=== PATIENT | male | born 1975 | race Two or more races ===

== ENCOUNTER 2023-09-16 13:46 | Emergency (ER) | payer OTHER, SELFPAY ==
--- NOTE | 2023-09-16 13:51 | ED.GENADULT ---
HPI - General Adult General Chief complaint: Eye Problems Stated complaint: Swelling L Eye No Injury Time Seen by Provider: 09/16/23 14:38 Related Data Allergies Allergy/AdvReac Type Severity Reaction Status Date / Time No Known Allergies Allergy Verified 09/16/23 13:51 [facility] Social History Social History Advance Directives: No Physical Exam ED Vital Signs: Vital Signs - 24 hr 09/16/23 13:52 09/16/23 16:00 Temperature 98 F 97.3 F Pulse Rate 68 56 Respiratory Rate 19 16 Blood Pressure 117/75 127/78 Pulse Oximetry 98 97 Oxygen Delivery Method Room Air Room Air BMI result Body Mass Index 27.4 Course Course Course Narrative: This is an RME: Additional HPI, ROS, PE not included below will be deferred to primary provider. 48 year old male presents w/ left eye blurriness X 1 month. No trauma to eye. But thinks he may have gotten something in his eye when he was at a park. Not a contact lens wearer Plan- [facility] Medications Administered Discontinued Medications Generic Name Dose Route Start Last Admin Trade Name David PRN Reason Stop Dose Admin Fluorescein Sodium 1 strip 09/16/23 13:53 09/16/23 14:53 Fluorescein Sodium Strip EYE-BOTH 09/16/23 13:54 1 strip ONCE ONE Administration Tetracaine HCl 3 drop 09/16/23 13:53 09/16/23 14:53 Tetracaine Hcl/Pf 0.5% Oph Lita 4 Ml Drops EYE-BOTH 09/16/23 13:54 3 drop ONCE ONE Administration
[2023-09-16 13:52] VITALS: BP 117/75; PULSE 68; RESP 19; TEMP 36.6; O2SAT 98; BMI 27.4
[2023-09-16] MEDS: Tetracaine HCl/PF 0.5% Oph Sol 4 ML DROPS 3 DROP EYE-BOTH (14:53)
[2023-09-16] MEDS: Fluorescein Sodium STRIP 1 STRIP EYE-BOTH (14:53)
--- NOTE | 2023-09-16 15:23 | ED.EYEPROB ---
HPI - Eye Problem General Chief complaint: Eye Problems Stated complaint: Swelling L Eye No Injury Time Seen by Provider: 09/16/23 14:38 Source: patient and staff interpreter Mode of arrival: ambulatory Limitations: language barrier History of Present Illness HPI Narrative: Patient is a 48-year-old Danish-speaking male presenting to the emergency department with complaint of left eye blurred vision and discomfort for the past month. States at times the eye is painful, at times pruritic but states blurred vision has been constant. Denies any drainage or discharge. Denies any contact use but does wear glasses occasionally. States that he had an appointment with his community development coordinator but when he went to the appointment, they were no longer excepting his eye insurance and he was not able to be seen. Denies any other neurological symptoms. Denies headaches, nausea, vomiting, dizziness, lightheadedness. States symptoms began when he was at the park and someone was using a leaf blower which blew onto the left side of his face. Denies any blackout or black spots in field of vision. MD chief complaint: eye pain and vision change Onset (ago): month(s) Onset description: sudden Duration: constant Location: left eye Eye Symptoms: pain, itching and blurry vision Place: street/outdoors Mechanism: other Severity: moderate Associated symptoms: none Treatments Prior to Arrival: none Related Data Allergies Allergy/AdvReac Type Severity Reaction Status Date / Time No Known Allergies Allergy Verified 09/16/23 13:51 Review of Systems Review of Systems: As per HPI. Yes all other systems are reviewed and are negative Constitutional: Constitutional: Reports as per HPI [facility] Social History Social History Advance Directives: No Physical Exam Vital Signs: Vital Signs: Last Vital Signs Temp 97.3 F 09/16/23 16:00 Pulse 56 09/16/23 16:00 Resp 16 09/16/23 16:00 BP 127/78 09/16/23 16:00 Pulse Ox 97 09/16/23 16:00 O2 Del Method Room Air 09/16/23 16:00 BMI result Body Mass Index 27.4 Vital signs have been reviewed and appear to be correct. Blood pressure normal. Heart rate normal. Respiratory rate normal. Temperature normal. Oxygen saturation normal. Const: General: cooperative, healthy appearing and no acute distress Orientation/consciousness: oriented to person, oriented to place, oriented to time and patient oriented x3 Limitations: no limitations HEENT: Head: Yes normocephalic and Yes atraumatic Ears: external ears normal General nose exam: Normal external nose present Face and sinus: Yes face symmetric Mouth: oropharynx normal and moist mucous membranes Throat: Yes uvula midline Eyes: Other: IOP with tonopen 12 L eye, 11 R eye; no abrasion or lesion noted on Joe lamp exam with fluoresceine stain General: appearance normal, both eyes and all related structures Visual Gloria: normal visual gloria by confrontation Periorbital: periorbital findings normal Eyelids: Yes eyelids normal Conjunctivae: conjunctivae normal Sclerae: sclerae normal Corneas: corneas normal Pupils: Equal, round and reactive pupils present EOM: EOMs intact bilaterally Direct Ophthalmoscopy: normal light reflex, no photophobia, no papilledema and fundi normal bilaterally Neck: Neck: Yes normal visual inspection and Yes supple Resp: Effort & Inspection: normal respiratory effort and able to speak in complete sentences Auscultation: clear to auscultation bilaterally Cardio: Rate: regular rate Rhythm: regular rhythm Heart sounds: S1 normal heart sound present and S2 normal heart sound present Skin: General skin exam: elasticity normal and turgor normal Neuro: General: oriented to person, oriented to place, oriented to time, patient oriented x3, moves all extremities, no focal motor deficits and CN's II-XI intact bilaterally Cranial nerves: Yes Equal, round and reactive pupils present Cognition (Neuro): normal cognition Extrem: General: Yes full ROM, Yes no pedal edema and Yes no calf tenderness Psych: Mental Status: mental status grossly normal Affect: normal affect Thought process: Normal thought process present Medications Administered Discontinued Medications Generic Name Dose Route Start Last Admin Trade Name David PRN Reason Stop Dose Admin Fluorescein Sodium 1 strip 09/16/23 13:53 09/16/23 14:53 Fluorescein Sodium Strip EYE-BOTH 09/16/23 13:54 1 strip ONCE ONE Administration Tetracaine HCl 3 drop 09/16/23 13:53 09/16/23 14:53 Tetracaine Hcl/Pf 0.5% Oph Lita 4 Ml Drops EYE-BOTH 09/16/23 13:54 3 drop ONCE ONE Administration Medical Decision Making Medical Decision Making MDM Narrative: Patient is a 48-year-old Danish-speaking male presenting to the emergency department with complaint of left eye blurred vision and discomfort for the past month. On exam patient is awake, A+Ox3, VS WNL, afebrile, normal neurological exam without focal deficits, physical exam findings as above. Given reported symptoms and physical exam findings, initial differential includes corneal abrasion, keratitis, uveitis, retinal detachment. No hyphema noted on exam, no evidence of acute angle closure glaucoma. Visual acuity 20/70 L eye, 20/50 R eye. IOPs WNL. Given that symptoms have been ongoing for over one month, will refer to Dr. Lam for further evaluation and management. Return precautions discussed at bedside. Patient verbalized understanding of and agreement with plan. Differential Diagnosis Differential Diagnoses: The differential diagnosis associated with the presentation includes As per MDM. External Record Review External record reviewed: Inpatient record, Office record and Outpatient record Discharge Plan Discharge Clinical Impression: Vision blurred Patient Disposition: Home, Self-Care Instructions: Blurred Vision (ED) Additional Instructions: Se le remitir? al Dr. Lam, oftalm?logo, para brenna evaluaci?n y tratamiento adicionales de iveth s?ntomas. Llame a la oficina para programar brenna shar lo antes posible. Regrese al departamento de emergencias si experimenta un empeoramiento del dolor, n?useas y v?mitos, celeste de stan, enrojecimiento, hinchaz?n, fiebre, secreci?n o cualquier otro s?ntoma preocupante. Referrals: Daniel Lam [Physician] - Print Language: Danish
--- NOTE | 2023-09-16 15:58 | PC.NURSE ---
visual acuity performed with assistance of napper grinder, pt states that his vision is bilaterally blurry
[2023-09-16 16:00] VITALS: BP 127/78; PULSE 56; RESP 16; TEMP 36.3; O2SAT 97
== END 2023-09-16 16:24 | disposition home or self-care (01) ==
PROVIDERS: Emergency Provider Emergency Medicine
DX: H53.8 Other visual disturbances (principal)
CPT/HCPCS: 99283; 99284

== ENCOUNTER 2024-03-26 14:31 | Outpatient (REF) | payer OTHER, SELFPAY ==
[2024-03-26 16:45] LABS: Alanine Aminotransferase 24 U/L (0-40); Albumin Level 4.2 g/dL (3.5-5.0); Alkaline Phosphatase 91 U/L (39-117); Anion Gap 11 (12-20); Aspartate Amino Transferase 20 U/L (5-37); Bilirubin Total 0.5 mg/dL (0.0-1.0); Blood Urea Nitrogen 7 mg/dL (9-16); Calcium 9.1 mg/dL (8.4-10.2); Carbon Dioxide 28 mmol/L (22-29); Chloride 104 mmol/L (96-108); Cholesterol 173 mg/dL (<200); Estimated Average Glucose 131 mg/dL; Estimated Glomerular Filt Rate > 60; Glucose Random 155 mg/dL (60-115); HDL Cholesterol 30 mg/dL (>40); Hemoglobin A1c % 6.2 % (<6.0); LDL Cholesterol Calculated 117 mg/dL (<100); Potassium 3.8 mmol/L (3.3-5.1); Sodium 139 mmol/L (135-145); Total Protein 7.1 g/dL (6.5-8.0); Triglycerides 134 mg/dL (<150)
[2024-03-27 04:54] LABS: HIV AB/AG Nonreactive (Nonreactive); HIV Num 1 0.06 S/CO (0.00-0.99)
== END 2024-03-26 14:32 | disposition home or self-care (01) ==
LOC: HO.HHCL 14:31
PROVIDERS: Visit Provider Nurse Practitioner Family
DX: Z12.11 Encounter for screening for malignant neoplasm of colon (principal)
CPT/HCPCS: 36415; 80053; 80061; 83036; 87389

== ENCOUNTER 2025-06-03 09:52 | Outpatient (REF) | payer OTHER, SELFPAY ==
--- OUTSIDE RECORDS SUMMARY | 2025-06-03 10:04 | XMS_ITS | Clinical Summary ---
Author Organization [facility] Address [address] [address] Phone Care Team Providers Care Mail Truck Driver Name Role Phone Joel Barrett Primary Care Provider [phone] Allergies No known active allergies Social History Tobacco Use Types Packs/Day Years Used Date Smoking Tobacco: Never Assessed Sex and Gender Information Value Date Recorded Sex Assigned at Not on file Legal Sex Male 6:35 PM EST Gender Identity Not on file Sexual Orientation Not on file Last Filed Vital Signs Vital Sign Reading Time Taken Comments Blood Pressure 104/81 05/09/2015 3:52 PM EDT Pulse 67 05/09/2015 3:52 PM EDT Temperature 36.3 C (97.3 F) 05/09/2015 3:52 PM EDT Respiratory Rate 16 04/11/2015 9:11 AM EDT Oxygen Saturation - - Inhaled Oxygen Concentration - - Weight 74.8 kg (165 lb) 05/09/2015 3:52 PM EDT Height 172.7 cm (5' 8 ) 05/09/2015 3:52 PM EDT Body Mass Index 25.09 05/09/2015 3:52 PM EDT Plan of Treatment Not on file Medical Devices Not on file Insurance [place] B HEALTH MEDICARE PART A & B HEALTH MEDICARE PART A & B [place]ALTH MEDICARE PART [place] [address] [place] [address] MEDICARE PART A & B [facility] Care Teams Mail Truck Driver Relationship Specialty Start Date End Date Joel Barrett PA [address] [facility] [address] [place] [address] PCP - General 05/03/14 Additional Source Comments The information contained in this document represents components of the legal health record. It is not the complete legal health record.[facility]
--- OUTSIDE RECORDS SUMMARY | 2025-06-03 10:04 | XMS_ITS | Clinical Summary ---
Author Organization [facility] Address [address] [place] [address] Care Team Providers Care Direct Casting Operator Name Role Phone Unavailable Primary Care Provider Unavailabl e Social History Tobacco Use Types Packs/Day Years Used Date Smoking Tobacco: Never Assessed Sex and Gender Information Value Date Recorded Sex Assigned at Not on file Legal Sex Male 9:00 AM EST Gender Identity Not on file Sexual Orientation Not on file Plan of Treatment Health Maintenance Due Date Last Done Comments DTaP,Tdap,and Td Vaccines (1 - Tdap) 1995 Hepatitis B Vaccines (1 of 3 - 19+ 3-dose series) 1995 COVID-19 Vaccine ( - 2023-2 5 season) 2024 Depression Screening 11/03/2024 Influenza Vaccine (#1) 2025 HIB Vaccines Aged Out No longer eligi ble based on patient's age to complete this topic HPV Vaccines Aged Out No longer eligi ble based on patient's age to complete this topic Hepatitis A Vaccines Aged Out No long er eligible based on patient's age to complete this topic IPV Vaccines Aged Out No longer eligi ble based on patient's age to complete this topic MMR Vaccines Aged Out No longer eligi ble based on patient's age to complete this topic Meningococcal ACWY Vaccine Aged Out N o longer eligible based on patient's age to complete this topic Meningococcal B Vaccine Aged Out No l onger eligible based on patient's age to complete this topic Pneumococcal Vaccine: Pediat rics (0 to 5 Years) and At-Risk Patients (6 to 49 Years) Aged Out No longer eligible b ased on patient's age to complete this topic RSV Immunization Patients Un isaac 20 months Aged Out No longer eligible b ased on patient's age to complete this topic Varicella Vaccines Aged Out No longer eligible based on patient's age to complete this topic
--- OUTSIDE RECORDS SUMMARY | 2025-06-03 10:04 | XMS_ITS | Encounter Summary ---
Author Organization [employer] Address [address] [facility] [address] [place] [address] Care Team Providers Care Sanitation Truck Driver Name Role Phone Noemi Pozo NP Primary Care Provider [phone] Reason for Visit * Reason Onset Date Comments Med Refill 02/17/2024 Encounter Details Date Type Department Care Team (Late st Contact Info) Description 02/17/2024 Refill [facility] MED[facility] [address] [place], [place] [phone] Noemi Pozo NP [address] [place] [address] Encounter for screening for malignant neoplasm of colon Social History Tobacco Use Types Packs/Day Years Used Date Smoking Tobacco: Never Smokeless Tobacco: Never Alcohol Use Standard Drinks/Week Comments Not Currently 0 (1 standard drink = 0.6 oz pur e alcohol) Housing Stability Answer Date Recorded What is your housing situation today? I have h[place]enia beebe 01/30/[address] you li ve. Do you have problems with any of the following? None of the above 01/30/2024 Food Insecurity Answer Date Recorded Within the past 12 months, y ou worried that your food would run out before you got money to buy more: Sometimes True 2023 Within the past 12 months,th e food you bought just didn't last and you didn't have enough money to get more: Sometimes True 01/30/2024 Transportation Answer Date Recorded In the past 12 months, has l ack of transportation kept you from medical appts, meetings, work or from getting things needed for daily living? Yes, it has kept me from medical appointments or getting medications. 01/30/2024 Utilities Answer Date Recorded In the past 12 months, has t he electric, gas, oil or water company threatened to shut off services in your home? No 01/30/2024 Sex and Gender Information Value Date Recorded Sex Assigned at Male 06/19/2023 4:11 PM EDT Legal Sex Male 4:10 PM EDT Gender Identity Male 06/19/2023 4:11 PM EDT Sexual Orientation Choose not to disclose 2022 4:11 PM EDT documented as of this encounter Plan of Treatment Not on file documented as of this encounter Visit Diagnoses Diagnosis Encounter for screening for malignant neoplasm of colon documented in this encounter Care Teams Sanitation Truck Driver Relationship Specialty Start Date End Date Noemi Pozo NP [address] [place] [phone] PCP - General Family Medicine 02/06/24 documented as of this encounter
[2025-06-03 12:19] LABS: MANUAL DIFF FLAG NO
[2025-06-03 12:24] LABS: Hematocrit 44.0 % (42.0-52.0); Hemoglobin 15.2 g/dl (14.0-18.0); Imm Gran Abs Auto 0.01 X10*3/uL (0.00-0.03); Imm Gran Pct Auto 0.2 % (0.0-0.4); Lymphocytes Absolute Auto 2.2 X10*3/uL (1.2-4.9); Mean Corpuscular HGB Conc 34.5 g/dl (31.0-36.0); Mean Corpuscular Hemoglobin 30.3 pg (27.0-33.0); Mean Corpuscular Volume 87.8 fL (80.0-98.0); NRBC Abs Auto 0.000 X10*3/uL (0.0-0.012); NRBC Pct Auto 0.0 /100WBC (0.0-0.2); Platelet Count 245 X10*3/uL (160-400); Red Blood Count 5.01 X10*6/uL (4.60-5.80); White Blood Count 6.0 X10*3/uL (4.8-10.8)
[2025-06-03 13:14] LABS: Alanine Aminotransferase 23 U/L (0-40); Albumin Level 4.5 g/dL (3.5-5.0); Alkaline Phosphatase 77 U/L (39-117); Anion Gap 10 (12-20); Aspartate Amino Transferase 26 U/L (5-37); Blood Urea Nitrogen 11 mg/dL (9-16); Calcium 8.9 mg/dL (8.4-10.2); Carbon Dioxide 29 mmol/L (22-29); Chloride 105 mmol/L (96-108); Cholesterol 173 mg/dL (<200); Estimated Glomerular Filt Rate > 60; HDL Cholesterol 35 mg/dL (>40); Potassium 3.6 mmol/L (3.3-5.1); Sodium 140 mmol/L (135-145); Total Protein 6.9 g/dL (6.5-8.0); Triglycerides 126 mg/dL (<150)
[2025-06-03 13:49] LABS: CT PCR Urine NOT DETECTED (Not Detect.); NG PCR Urine NOT DETECTED (Not Detect.)
[2025-06-03 13:50] LABS: HIV Num 1 0.05 S/CO (0.00-0.99); ~HepC Num1 0.08 S/CO (0.00-0.79); ~Hepatitis C Antibody Nonreactive (Nonreactive)
[2025-06-03 13:50] LABS: CT PCR Urine NOT DETECTED (Not Detect.); NG PCR Urine NOT DETECTED (Not Detect.)
== END 2025-06-03 09:53 | disposition home or self-care (01) ==
LOC: HO.HHCL 09:52
PROVIDERS: PCP Nurse Practitioner Family; Visit Provider Nurse Practitioner Family
DX: R73.03 Prediabetes (principal); R51.9 Headache, unspecified; Z11.59 Encounter for screening for other viral diseases; Z11.3 Encounter for screening for infections with a predominantly sexual mode of transmission; Z11.4 Encounter for screening for human immunodeficiency virus [HIV]; Z11.8 Encounter for screening for other infectious and parasitic diseases
CPT/HCPCS: 36415; 80053; 80061; 85025; 86592; 86803; 87389; 87491; 87591

== ENCOUNTER 2025-08-05 19:05 | Outpatient (REF) | payer OTHER, SELFPAY ==
--- OUTSIDE RECORDS SUMMARY | 2025-08-05 10:15 | XMS_ITS | Encounter Summary ---
Author Organization [employer] Address [address] [place] [address] Care Team Providers Care Can Reforming Machine Operator Name Role Phone Noemi Pozo NP Primary Care Provider [phone] Reason for Visit * Reason Comments Follow-up Encounter Details Date Type Department Care Team ([facility] st Contact Info) Description 08/05/2025 10:15 AM EDT Office Visit [facility] [address] [place], [place] [phone] Noemi Pozo NP [address] [place] [address] Elevated blood pressure reading (Primary Dx); Type 2 diabetes mellitus without complication, without long-term current use of insulin (HCC); Dysuria; Encounter for immunization; Candidiasis of genitalia; At risk for nausea and vomiting; Aching headache; Chronic low back pain, unspecified back pain laterality, unspecified whether sciatica present Social History Tobacco Use Types Packs/Day Years Used Date Smoking Tobacco: Never Smokeless Tobacco: Never Tobacco Cessation:Counseling Given: Not Answered Alcohol Use Standard Drinks/Week Comments Never 0 (1 standard drink = 0.6 oz pur e alcohol) Depression Answer Date Recorded Patient Health Questionnaire-9 Score 7 06/03/2025 Patient Health Questionnaire-9 Score 7 06/03/2025 Last PHQ-9: Questionnaire Data Not on file 0 06/03/2025 Housing Stability Answer Date Recorded What is your housing situation today? I have h[place] beebe 06/03/[address] you li ve. Do you have problems with any of the following? None of the above 06/03/2025 Food Insecurity Answer Date Recorded Within the past 12 months, y ou worried that your food would run out before you got money to buy more: Often true 06/03/2025 Within the past 12 months,th e food you bought just didn't last and you didn't have enough money to get more: Never True 11/2024 Transportation Answer Date Recorded In the past 12 months, has l ack of transportation kept you from medical appts, meetings, work or from getting things needed for daily living? Yes, it has kept me from medical appointments or getting medications. 06/03/2025 Utilities Answer Date Recorded In the past 12 months, has t he [employer], [employer], oil or water [employer] threatened to shut off services in your home? Yes 06/03/2025 Depression Answer Date Recorded Patient Health Questionnaire-2 Score 2 06/03/2025 Internet Access Answer Date Recorded Internet Access Q1 No 06/03/2025 Internet Access Q2 Not on file 06/03/2025 Sex and Gender Information Value Date Recorded Sex Assigned at Male 06/19/2023 4:11 PM EDT Legal Sex Male 4:10 PM EDT Gender Identity Male 06/19/2023 4:11 PM EDT Sexual Orientation Choose not to disclose 2022 4:11 PM EDT documented as of this encounter Last Filed Vital Signs Vital Sign Reading Time Taken Comments Blood Pressure 148/100 08/05/2025 10:27 AM EDT Pulse 90 08/05/2025 10:27 AM EDT Temperature 36.7 C (98.1 F) 08/05/2025 10:27 AM EDT Respiratory Rate 20 08/05/2025 10:27 AM EDT Oxygen Saturation - - Inhaled Oxygen Concentration - - Weight 83.1 kg (183 lb 3.2 oz) 08/05/2025 10:27 AM EDT Height 170.2 cm (5' 7 ) 08/05/2025 10:27 AM EDT Body Mass Index 28.69 08/05/2025 10:27 AM EDT documented in this encounter Progress Notes * Noemi Pozo NP - 08/05/2025 10:15 AM EDT Bandar Osullivanzquez is a 49 y.o. male presenting for follow up for the following conditions: - Bandar Ma, 49-year-old male - Headaches occurring 2 to 3 days per week, increased frequency recently - Reports mild back pain, worsened with bending - Previously took Tylenol with codeine for spine and back pain, found it effective for pain relief - Currently taking amitriptyline nightly - Denies concerns about substance use or misuse - Reports presence of a small white spot on the penis - Urine described as having an unpleasant odor prior to the encounter Problem List[1] Review of Systems Respiratory: Negative for apnea. Genitourinary: Positive for penile discharge. Musculoskeletal: Positive for back pain. Neurological: Positive for headaches. BP (!) 148/100 (BP Location: Left arm, Patient Position: Sitting, BP Cuff Size: Adult) Pulse 90 Temp 98.1 ??F (36.7 ??C) (Oral) Resp 20 Ht 5' 7 (1.702 m) Wt 183 lb 3.2 oz (83.1 kg) BMI 28.69 kg/m?? Physical Exam Vitals reviewed. Constitutional: Appearance: Normal appearance. HENT: Head: Normocephalic. Cardiovascular: Rate and Rhythm: Normal rate. Heart sounds: Normal heart sounds. Pulmonary: Breath sounds: Normal breath sounds. Abdominal: Palpations: Abdomen is soft. Musculoskeletal: Cervical back: Neck supple. Neurological: Mental Status: He is alert. Psychiatric: Mood and Affect: Mood normal. - CARDIOVASCULAR: Elevated blood pressure. Office Visit on 08/05/2025 Component Date Value Glucose Blood, POC 08/05/2025 217 (A) QC Media Lot # 08/05/2025 [id number] Lot# Expiration Date 08/05/2025 [id number] Color, UA 08/05/2025 Light Yellow Clarity, UA 08/05/2025 Clear Glucose, UA 08/05/2025 Negative Bilirubin, UA 08/05/2025 Negative Ketones, UA 08/05/2025 Negative Spec Grav, UA 08/05/2025 1.010 Blood, UA 08/05/2025 Negative pH, UA 08/05/2025 7.0 Protein, UA 08/05/2025 Negative Urobilinogen, UA 08/05/2025 0.2 Leukocytes, UA 08/05/2025 Negative Nitrite, UA 08/05/2025 Negative Appearance, UA 08/05/2025 yellow clear Orders Only on 06/03/[address] PCR, Urine 06/03/2025 NOT DETECTED NG PCR, Urine 06/03/2025 NOT DETECTED Office Visit on 06/03/2025 Component Date Value Glucose Blood, POC 06/03/2025 139 QC Media Lot # 06/03/2025 [id number] Lot# Expiration Date 06/03/2025 103,025 Hemoglobin A1C 06/03/2025 6.1 (A) QC Media Lot # 06/03/2025 [id number] Lot# Expiration Date 06/03/2025 22,627 Sodium 06/03/2025 140 Potassium 06/03/2025 3.6 Chloride 06/03/2025 105 Carbon Dioxide 06/03/2025 29 Anion Gap 06/03/2025 10 (L) Urea Nitrogen (BUN) 06/03/2025 11 Creatinine, Serum 06/03/2025 0.85 Estimated Glomerular Rene* 06/03/2025 >60 Glucose 06/03/2025 93 Calcium 06/03/2025 8.9 Bilirubin, Total 06/03/2025 0.5 Aspartate Amino Transfer* 06/03/2025 26 Alanine Aminotransferase 06/03/2025 23 Total Protein 06/03/2025 6.9 Albumin Level 06/03/2025 4.5 Alkaline Phosphatase 06/03/2025 77 Triglycerides 06/03/2025 126 Cholesterol 06/03/2025 173 LDL Cholesterol Calculat* 06/03/2025 113 (H) HDL Cholesterol 06/03/2025 35 (L) White Blood Count 06/03/2025 6.0 Red Blood Count 06/03/2025 5.01 Hemoglobin 06/03/2025 15.2 Hematocrit 06/03/2025 44.0 Mean Corpuscular Volume 06/03/2025 87.8 Mean Corpuscular Hemoglo* 06/03/2025 30.3 Mean Corpuscular HGB Conc 06/03/2025 34.5 Red Cell Distribution Wi* 06/03/2025 12.7 Platelet Count 06/03/2025 245 Mean Platelet Volume 06/03/2025 10.9 Neutrophils Percent Auto 06/03/2025 50.4 Imm Gran Pct Auto 06/03/2025 0.2 Lymphocytes Percent Auto 06/03/2025 36.0 Monocytes Percent Auto 06/03/2025 9.5 Eosinophils Percent Auto 06/03/2025 2.7 Basophils Percent Auto 06/03/2025 1.2 NRBC Pct Auto 06/03/2025 0.0 Neutrophils Absolute Auto 06/03/2025 3.0 Imm Gran Abs Auto 06/03/2025 0.01 Lymphocytes Absolute Au* 06/03/2025 2.2 Monocytes Absolute Auto 06/03/2025 0.6 Eosinophils Absolute Auto 06/03/2025 0.2 Basophils Absolute Auto 06/03/2025 0.1 NRBC Abs Auto 06/03/[address] PCR, Urine 06/03/2025 NOT DETECTED NG PCR, Urine 06/03/2025 NOT DETECTED HIV AB/AG 06/03/2025 Nonreactive Hepatitis C Antibody 06/03/2025 Nonreactive RPR (Monitor) w/Refl Tit* 06/03/2025 NON-REACTIVE Rapid Plasma Reagin Ab T* 06/03/2025 TNP IMAGES: - Urinalysis: normal Assessment & Plan Type 2 diabetes mellitus without complication, without long-term current use of insulin ([facility]) Orders: POCT Glucose Dysuria Orders: POCT Urinalysis Culture, Urine, Routine Encounter for immunization Orders: FLU VACCINE TRIVALENT [id number] (Fluarix) 19 yrs + Elevated blood pressure reading Candidiasis of genitalia At risk for nausea and vomiting Aching headache Orders: ondansetron (Zofran) 4 MG tablet; Take 2 tablets (8 mg) by mouth every 8 (eight) hours if needed for nausea or vomiting for up to 7 days. Chronic low back pain, unspecified back pain laterality, unspecified whether sciatica present Orders: acetaminophen-codeine (Tylenol w/ Codeine #3) 300-30 MG tablet; Take 1 tablet by mouth every 12 (twelve) hours if needed for severe pain for up to 4 days. Assessment & Plan Elevated blood pressure reading: - Elevated blood pressure noted during encounter; typically well-controlled, but higher than usual today. - Ordered blood pressure cuff for home monitoring. Recommended to check blood pressure at home whendevice is available. Candidiasis of genitalia: - Genital candidiasis suspected based on presence of white exudate on penis. - Prescribed topical antifungal medication. Advised to notify clinic if symptoms do not improve. At risk for nausea and vomiting: - Prescribed ondansetron (Zofran) for nausea and vomiting as requested. Aching headache: - Headache frequency increased to 2-3 days per week. Headaches managed with amitriptyline; dose increased from 10 mg to 25 mg nightly to reduce headache frequency. - Prescribed amitriptyline 25 mg nightly. Advised to monitor headache frequency and note episodes in phone. Follow-up scheduled in 6 weeks to assess response to medication. - Risks and side effects: Discussed possible increased sleepiness, especially during first few nights and mornings after dose increase. Chronic low back pain, unspecified back pain laterality, unspecified whether sciatica present: - Chronic low back pain managed previously with Tylenol with codeine, which provided relief. Not recommended for daily use. - Prescribed small quantity of Tylenol with codeine for occasional use during episodes of severe pain. Advised to use sparingly and consider alternative pain management strategies, including injections and other medications. Encouraged to stay active. Prescription - Amitriptyline 25 mg nightly (increase from 10 mg; may cause increased somnolence first few nightsand possible morning sedation) - Topical antifungal cream for penile yeast infection; monitor for improvement and report if no resolution - Tylenol with codeine tablets, limited quantity; use sparingly for back pain (controlled substance, not intended for daily long-term use) Appointments - Follow-up appointment in 6 weeks at front facer scheduling Based on our discussion, I have outlined the following instructions for you: - When you receive your blood pressure monitor, check your blood pressure at home as recommended. - Use the cream for your genital area as prescribed. If you do not see improvement in your symptoms, contact the clinic. - Take ondansetron (Zofran) as prescribed if you feel nauseous or need to vomit. - Take amitriptyline 25 mg every night as prescribed. Keep track of how often you get headaches by noting them in your phone. - You may feel more sleepy, especially during the first few nights and mornings after starting the higher dose of amitriptyline. - Use Tylenol with codeine only when your back pain is very severe, and use it sparingly. Try otherways to manage pain if possible, and keep active. Next appointment(s): - Follow-up appointment in 6 weeks at front facer scheduling Thank you again for your visit, and we look forward to supporting you in your journey to better health. This note was drafted using Ambient (AI) technology. The patient/patient's guardian has been informed and has consented to the use of this technology: Yes Visit Conducted in: Qatari Translation by: Provided by [email or web address] Sr. Pricing Analyst Phone Service ID # [id number] [1] Patient Active Problem List Diagnosis Asthma Chronic low back pain Depression Glucose intolerance HSV-2 infection Hypertension Migraine Prediabetes PTSD (post-traumatic stress disorder) Vision changes Gastroesophageal reflux disease without esophagitis Chronic bilateral thoracic back pain Pre-diabetes Seasonal allergic rhinitis due to pollen HSV-1 infection Cataract Cervicogenic headache Encounter for immunization Subacute pansinusitis Hyperglycemia Colon cancer screening Acute bilateral low back pain with sciatica Routine screening for STI (sexually transmitted infection) Chronic daily headache Dietary counseling Exercise counseling Dysuria Type 2 diabetes mellitus without complication, without long-term current use of insulin (HCC) Elevated blood pressure reading Candidiasis of genitalia At risk for nausea and vomiting Aching headache documented in this encounter Miscellaneous Notes * Assessment & Plan Note - Noemi Pozo NP - 08/05/2025 10:15 AM EDTAssociated Problem(s): Type 2 diabetes mellitus without complication, without long-term current useof insulin (HCC) Orders: POCT Glucose * Assessment & Plan Note - Noemi Pozo NP - 08/05/2025 10:15 AM EDTAssociated Problem(s): Dysuria Orders: POCT Urinalysis Culture, Urine, Routine * Assessment & Plan Note - Noemi Pozo NP - 08/05/2025 10:15 AM EDTAssociated Problem(s): Encounter for immunization Orders: FLU VACCINE TRIVALENT [id number] (Fluarix) 19 yrs + * Assessment & Plan Note - Noemi Pozo NP - 08/05/2025 10:15 AM EDTAssociated Problem(s): Elevated blood pressure reading * Assessment & Plan Note - Noemi Pozo NP - 08/05/2025 10:15 AM EDTAssociated Problem(s): Candidiasis of genitalia * Assessment & Plan Note - Noemi Pozo NP - 08/05/2025 10:15 AM EDTAssociated Problem(s): At risk for nausea and vomiting * Assessment & Plan Note - Noemi Pozo NP - 08/05/2025 10:15 AM EDTAssociated Problem(s): Aching headache Orders: ondansetron (Zofran) 4 MG tablet; Take 2 tablets (8 mg) by mouth every 8 (eight) hours if needed for nausea or vomiting for up to 7 days. * Assessment & Plan Note - Noemi Pozo NP - 08/05/2025 10:15 AM EDTAssociated Problem(s): Chronic low back pain Orders: acetaminophen-codeine (Tylenol w/ Codeine #3) 300-30 MG tablet; Take 1 tablet by mouth every 12 (twelve) hours if needed for severe pain for up to 4 days. documented in this encounter Plan of Treatment Upcoming Encounters Date Type Department Care Team (Late st Contact Info) Description 08/16/2025 1:00 PM EDT Office Visit [facility] [address] [place], [place] [phone] Evangelist, Sona, OD [address] [place] [address] Scheduled Orders Name Type Priority Associated Diagnoses Orde r Schedule Culture, Urine, Routine Microbiology Routine Dysuria Ordered: 08/05/2025 documented as of this encounter Procedures Procedure Name Priority Date/Time Associated Diagnosis Comments POCT URINALYSIS DIPSTICK Routine 08/05/2025 10:31 AM EDT Dysuria POCT GLUCOSE Routine 08/05/2025 10:29 AM EDT Type 2 diabetes mellitus without complication, without long-term current use of insulin (HCC) documented in this encounter Results * POCT Urinalysis (08/05/2025 10:31 AM EDT) Color, UA Light Yellow Clarity, UA Clear Glucose, UA Negative Bilirubin, UA Negative Ketones, UA Negative Spec Grav, UA 1.010 Blood, UA Negative Negative, None Detected pH, UA 7.0 Protein, UA Negative Urobilinogen, UA 0.2 Leukocytes, UA Negative Negative, Rare, Trace Nitrite, UA Negative Negative, None Detected Appearance, UA yellow clear Urine 08/05/2025 10:3 1 AM EDT Noemi Pozo NP POINT OF CARE TEST ENTER/EDIT OR DERABLES Final Result * (ABNORMAL) POCT Glucose (08/05/2025 10:29 AM EDT) Glucose Blood, POC 217(A) 60 - 200 mg/dL QC Media Lot # [id number] Lot# Expiration Date 3026 Blood Capillary blood specimen / Unknown 08/05/2025 10:29 AM EDT Noemi Pozo CASTING COORDINATOR POINT OF CARE TEST ENTER/EDIT OR DERABLES Final Result documented in this encounter Visit Diagnoses Diagnosis Elevated blood pressure reading- Primary Elevated blood pressure reading without diagnosis of hypertension Type 2 diabetes mellitus without complication, without long-term current use of insulin (HCC) Dysuria Encounter for immunization Candidiasis of genitalia At risk for nausea and vomiting Aching headache Headache Chronic low back pain, unspecified back pain laterality, unspecified whether sciatica present documented in this encounter Additional Health Concerns Assessment Noted Time PHQ-9 Depression Total Score: 7 06/03/20 25 9:56 AM EDT documented as of this encounter Care Teams Can Reforming Machine Operator Relationship Specialty Start Date End Date Noemi Pozo NP [address] [place] [address] PCP - General Family Medicine 02/06/24 documented as of this encounter
--- OUTSIDE RECORDS SUMMARY | 2025-08-05 19:08 | XMS_ITS | Encounter Summary ---
Author Organization [employer] Address [address] [facility] [address] [place] [address] Care Team Providers Care Cargo Supervisor Name Role Phone Noemi Pozo CAMILA Primary Care Provider [phone] Encounter Details Date Type Department Care Team (Latest Contact Info) Description 08/05/2025 Travel Social History Tobacco Use Types Packs/Day Years Used Date Smoking Tobacco: Never Smokeless Tobacco: Never Alcohol Use Standard Drinks/Week Comments Never 0 [...] as of this encounter Plan of Treatment Upcoming Encounters Date Type Department Care Team (Late st Contact Info) Description 08/16/2025 1:00 PM EDT Office Visit [facility] [address] [place] [address] Sona Blanca, OD [address] [place] [address] documented as of this encounter Visit Diagnoses Not on filedocumented in this encounter Additional Health Concerns Assessment Noted Time PHQ-9 Depression Total Score: 7 06/03/20 25 9:56 AM EDT documented as of this encounter Care Teams Cargo Supervisor Relationship Specialty Start Date End Date Noemi Pozo NP [address] [place] [address] PCP - General Family Medicine 02/06/24 documented as of this encounter
--- OUTSIDE RECORDS SUMMARY | 2025-08-05 19:08 | XMS_ITS | Encounter Summary ---
Author Organization [employer] Address [address] [facility] [address], [place] [address] Care Team Providers Care Timber Buyer Name Role Phone Noemi Pozo NP Primary Care Provider [phone] Reason for Visit * Reason Comments Med Refill Encounter Details Date Type Department Care Team ([facility] st Contact Info) Description 08/03/2025 Refill [facility] [address] [place], [place] [phone] Noemi Pozo NP [address] [place], [place] [phone] HSV-1 infection; Seasonal allergic rhinitis due to pollen Social History Tobacco Use Types Packs/Day Years [...] Description 08/16/2025 1:00 PM EDT Office Visit [facility] [address] [place] [address] Sona Blanca, OD [address] [place] [address] documented as of this encounter Visit Diagnoses Diagnosis HSV-1 infection Herpes simplex without mention of complication Seasonal allergic rhinitis due to pollen documented in this encounter Additional Health Concerns Assessment Noted Time PHQ-9 Depression Total Score: 7 06/03/20 25 9:56 AM EDT documented as of this encounter Care Teams Timber Buyer Relationship Specialty Start Date End Date Noemi Pozo NP [address] [place] [address] PCP - General Family Medicine 02/06/24 documented as of this encounter
--- OUTSIDE RECORDS SUMMARY | 2025-08-05 19:08 | XMS_ITS | Encounter Summary ---
Author Organization [employer] Address [address] [facility] [address] [place] [address] Care Team Providers Care Contract Administrative Assistant Name Role Phone Noemi Pozo CAMILA Primary Care Provider [phone] Reason for Visit * Reason Onset Date Comments Med Refill 08/04/2025 Encounter Details Date Type Department Care Team (Late st Contact Info) Description 08/04/2025 Refill [facility] [address] [place] [phone] Lamar Dutton MD [address] [place] [address] Social History Tobacco Use Types Packs/Day Years [...] Description 08/16/2025 1:00 PM EDT Office Visit [facility] [address] [place] [address] EvangelistSona daniel, OD [address] [place] [address] documented as of this encounter Visit Diagnoses Not on filedocumented in this encounter Additional Health Concerns Assessment Noted Time PHQ-9 Depression Total Score: 7 06/03/20 25 9:56 AM EDT documented as of this encounter Care Teams Contract Administrative Assistant Relationship Specialty Start Date End Date Noemi Pozo NP [address] [place] [address] PCP - General Family Medicine 02/06/24 documented as of this encounter
--- OUTSIDE RECORDS SUMMARY | 2025-08-05 19:08 | XMS_ITS | Encounter Summary ---
Author Organization [employer] Address [address] [address] Care Team Providers Care Senior Contract Specialist Name Role Phone Noemi Pozo NP Primary Care Provider [phone] Reason for Visit * Reason Onset Date Comments Med Refill 08/04/2025 Encounter Details Date Type Department Care Team (Late st Contact Info) Description 08/04/2025 Refill [facility] [address] [place], [place] [phone] Noemi Pozo NP [address] [place] [address] Type 2 diabetes mellitus without complication, without long-term current use of insulin (HCC); Moderate persistent asthma without complication; Chronic bilateral thoracic back pain; Seasonal allergic rhinitis due to pollen; HSV-1 infection Social History Tobacco Use Types Packs/Day Years [...] Description 08/16/2025 1:00 PM EDT Office Visit [facility] [address] [place] [address] Sona Blanca, OD [address] [place] [address] documented as of this encounter Visit Diagnoses Diagnosis Type 2 diabetes mellitus without complication, without long-term current use of insulin (HCC) Moderate persistent asthma without complication Chronic bilateral thoracic back pain Seasonal allergic rhinitis due to pollen HSV-1 infection Herpes simplex without mention of complication documented in this encounter Additional Health Concerns Assessment Noted Time PHQ-9 Depression Total Score: 7 06/03/20 25 9:56 AM EDT documented as of this encounter Care Teams Senior Contract Specialist Relationship Specialty Start Date End Date Noemi Pozo NP [address] [place] [address] PCP - General Family Medicine 02/06/24 documented as of this encounter
--- OUTSIDE RECORDS SUMMARY | 2025-08-05 19:08 | XMS_ITS | Encounter Summary ---
Author Organization [employer] Address [address] [facility] [address] [place] [address] Care Team Providers Care Pie Bottomer Name Role Phone Noemi Pozo NP Primary Care Provider [phone] Reason for Visit * Reason Onset Date Comments Med Refill 02/17/2024 Encounter Details Date Type Department Care Team (Late st Contact Info) Description 02/17/2024 Refill [facility] [address] [place], [place] [phone] Noemi Pozo NP [address] [place] [address] Encounter for screening for malignant neoplasm of colon Social History Tobacco Use Types Packs/Day Years Used Date Smoking Tobacco: Never Smokeless Tobacco: Never Alcohol Use Standard Drinks/Week Comments Not Currently 0 (1 standard drink = 0.6 oz pur e alcohol) Housing Stability Answer Date Recorded What is your housing situation today? I have halegihyesenia beebe 01/30/[address] you [...] Description 08/16/2025 1:00 PM EDT Office Visit [facility] [address] [place] [address] Sona Blanca, OD [address] [place] [address] documented as of this encounter Visit Diagnoses Diagnosis Encounter for screening for malignant neoplasm of colon documented in this encounter Care Teams Pie Bottomer Relationship Specialty Start Date End Date Noemi Pozo NP [address] [place] [address] PCP - General Family Medicine 02/06/24 documented as of this encounter
--- OUTSIDE RECORDS SUMMARY | 2025-08-05 19:08 | XMS_ITS | Encounter Summary ---
Author Organization [employer] Address [address] [facility] [address], [place] [address] Care Team Providers Care Accounting Analyst Name Role Phone Noemi Pozo NP Primary Care Provider [phone] Reason for Visit * Reason Onset Date Comments CHARTPREP 08/04/2025 Encounter Details Date Type Department Care Team ([facility] st Contact Info) Description 08/04/2025 Telephone [facility] [address] [place], [place] [phone] Noemi Pozo NP [address] [place] [address] CHARTPREP Social History Tobacco Use Types Packs/Day Years [...] PM EDT documented as of this encounter Miscellaneous Notes * Telephone Encounter - Murray Ashby [place] - 08/04/2025 10:37 AM EDT Chart Prep Labs: done Images: not applicable Referrals: Office: [facility] [address] [place] [address] Tel. [phone] Fax. [phone]. 1st appointment 07/26/25, following appointments for therapies 08/10/25 08/12/25, 08/17/25, 08/22/25, 08/25/25, 08/29/25, 09/01/25 Office: [facility] [address] [place] [address] Tel. [phone] Fax. [phone]. Pending appt. Referral and notes faxed to office on 06/03/2025 GI appointment is pending Office: [facility] Dr. Gonzalez (NPI# [id number]) [address] [facility] [address] Tel. [phone] Fax. [phone]. Pt pending appointment. Vaccines due: Covid, Flu, Hep B, and HPV Screenings: colonoscopy and foot exam,Diabetes Overdue care gaps: SBIRT and Oral health screening documented in this encounter Plan of Treatment Upcoming Encounters Date Type Department Care Team (Late st Contact Info) Description 08/16/2025 1:00 PM EDT Office Visit [facility] [address] [place] [address] Sona Blanca, OD [address] [place] [address] documented as of this encounter Visit Diagnoses Not on filedocumented in this encounter Additional Health Concerns Assessment Noted Time PHQ-9 Depression Total Score: 7 06/03/20 25 9:56 AM EDT documented as of this encounter Care Teams Accounting Analyst Relationship Specialty Start Date End Date Noemi Pozo NP [address] [place] [address] PCP - General Family Medicine 02/06/24 documented as of this encounter
--- OUTSIDE RECORDS SUMMARY | 2025-08-05 19:08 | XMS_ITS | Encounter Summary ---
Author Organization [employer] Address [address] [facility] [address] [place] [address] Care Team Providers Care Human Resources Director Name Role Phone Noemi Pozo NP Primary Care Provider [phone] Reason for Visit * Reason Comments Med Refill Encounter Details Date Type Department Care Team ([facility] st Contact Info) Description 11/13/2024 Refill [facility] [address] [place], [place] [phone] Noemi Pozo NP [address] [place] [address] Social History Tobacco Use Types Packs/Day Years Used Date Smoking Tobacco: Never Smokeless Tobacco: Never Alcohol Use Standard Drinks/Week Comments Never 0 (1 standard drink = 0.6 oz pur e alcohol) Depression Answer Date Recorded Patient Health Questionnaire-9 Score 0 05/17/2024 Patient Health Questionnaire-9 Score 0 05/17/2024 Last PHQ-9: Questionnaire Data Not on file 0 05/17/2024 Housing Stability Answer Date Recorded What is your housing situation today? I have [place] beebe 01/30/[address] you [...] off services in your home? No 01/30/2024 Depression Answer Date Recorded Patient Health Questionnaire-2 Score 0 05/17/2024 Sex and Gender Information Value Date Recorded [...] 08/16/2025 1:00 PM EDT Office Visit [facility] [address] [place], [place] [phone] Evangelist, Sona, OD [address] [place] [address] documented as of this encounter Visit Diagnoses Not on filedocumented in this encounter Additional Health Concerns Assessment Noted Time PHQ-9 Depression Total Score: 0 05/17/20 24 3:47 PM EDT documented as of this encounter Care Teams Human Resources Director Relationship Specialty Start Date End Date Noemi Pozo NP [address] [place] [address] PCP - General Family Medicine 02/06/24 documented as of this encounter
--- OUTSIDE RECORDS SUMMARY | 2025-08-05 19:08 | XMS_ITS | Encounter Summary ---
Author Organization [employer] Address [address] [facility] [address] [place] [address] Care Team Providers Care Surveyor Rod Helper Name Role Phone Noemi Pozo CAMILA Primary Care Provider [phone] Encounter Details Date Type Department Care Team (Latest Contact Info) Description 08/04/2025 Travel Social History Tobacco Use Types Packs/Day [...] Description 08/16/2025 1:00 PM EDT Office Visit [facility] [address] [place] [address] Sona Blanca, OD [address] [place] [address] documented as of this encounter Visit Diagnoses Not on filedocumented in this encounter Additional Health Concerns Assessment Noted Time PHQ-9 Depression Total Score: 7 06/03/20 25 9:56 AM EDT documented as of this encounter Care Teams Surveyor Rod Helper Relationship Specialty Start Date End Date Noemi Pozo NP [address] [place] [address] PCP - General Family Medicine 02/06/24 documented as of this encounter
--- OUTSIDE RECORDS SUMMARY | 2025-08-05 19:08 | XMS_ITS | Clinical Summary ---
Author Organization [employer] Address [address] [place] [address] [address] [place] [address] Care Team Providers Care Certification And Selection Specialist Name Role Phone Noemi Pozo CAMILA Primary Care Provider [phone] Allergies No known active allergies Medications Ventolin HFA 108 (90 Base) MCG/ACT inhaler INHALE 2 PUFFS BY MOUTH EVERY 6 HOURS NEEDED FOR WHEEZING / SHORTNESS OF BREATH 023 Active ARIPiprazole (Abilify) 10 MG tablet Take 10 mg by mouth in the morning. 023 Active atenolol (Tenormin) 50 MG tablet Take 50 mg by mouth in the morning. 024 Active capsaicin (Zostrix) 0.025 % cream Apply topically to the affected areas twice daily 023 Active Diclofenac Sodium 1 % gel Apply 1-2 grams to the affected area four times daily as needed 023 Active omeprazole (PriLOSEC) [address] capsule Take 40 mg by mouth before breakfast. Active ondansetron ODT (Zofran-ODT) 4 MG disintegrating tablet Take 1 tablet by mouth every 6 (six) hours if needed for nausea or vomiting. 023 Active sertraline (Zoloft) 100 MG tablet Take 100 mg by mouth in the morning. Active sucralfate (Carafate) 1 g tablet Take 1 tablet by mouth three times daily before meals and before bedtime on an empty stomach as needed 023 Active zolpidem (Ambien) 10 MG tablet Take 10 mg by mouth if needed at bedtime for sleep. Active fluticasone-salme terol (Advair HFA) 230-21 MCG/ACT inhaler Inhale 2 puffs in the morning and at bedtime. Rinse mouth with water after use to reduce aftertaste and incidence of candidiasis. Do not swallow. 12 g 11 025 2025 Active fluticasone (Flonase) 50 MCG/ACT nasal sprayIndications: Seasonal allergic rhinitis due to pollen INSTILL 1 SPRAY IN EACH NOSTRIL TWICE DAILY FOR 7 DAYS 16 g Active valACYclovir (Valtrex) 500 MG tabletIndications :HSV-1 infection TAKE 1 TABLET BY MOUTH EVERY DAY 30 tablet 1 Active cetirizine (ZyrTEC) 10 MG tabletIndications :Seasonal allergic rhinitis due to pollen Take 1 tablet (10 mg) by mouth Once per day. 30 tablet 2 Active tiZANidine (Zanaflex) 4 MG tabletIndications :Type 2 diabetes mellitus without complication, without long-term current use of insulin (HCC) Take 1 tablet (4 mg) by mouth if needed in the morning and at bedtime for muscle spasms. 60 tablet 1 Active montelukast (Singulair) 10 MG tabletIndications :Moderate persistent asthma without complication Take 1 tablet (10 mg) by mouth at bedtime. 30 tablet 3 Active cyclobenzaprine (Flexeril) 10 MG tabletIndications :Chronic bilateral thoracic back pain TAKE 1 TABLET BY MOUTH DAILY AT BEDTIME NEEDED FOR MUSCLE SPASMS 20 tablet 1 Active acetaminophen (Tylenol) 325 MG tablet TAKE 2 TABLETS BY MOUTH EVERY 6 HOURS NEEDED FOR MODERATE PAIN OR FOR MIGRAINE 90 tablet 1 Active polyvinyl alcohol (Liquifilm Tears) 1.4 % ophthalmic solution Administer 1 drop into both eyes if needed for dry eyes. PLACE 1 DROP IN EACH EYE TWICE DAILY NEEDED 15 mL 3 Active amitriptyline (Elavil) 25 MG tablet Take 1 tablet (25 mg) by mouth at bedtime. 90 tablet 025 2025 Active miconazole (Micatin) 2 % cream Apply topically 2 times daily for 14 days. 30 g 025 2024 Active ondansetron (Zofran) 4 MG tabletIndications :Aching headache Take 2 tablets (8 mg) by mouth every 8 (eight) hours if needed for nausea or vomiting for up to 7 days. 20 tablet 025 2024 Active acetaminophen-cod eine (Tylenol w/ Codeine #3) 300-30 MG tabletIndications :Chronic low back pain, unspecified back pain laterality, unspecified whether sciatica present Take 1 tablet by mouth every 12 (twelve) hours if needed for severe pain for up to 4 days. 8 tablet 2024 Active Blood Pressure kit 1 kit if needed each day (bp). 1 kit Active tiZANidine (Zanaflex) 4 MG tabletIndications :Type 2 diabetes mellitus without complication, without long-term current use of insulin (HCC) TAKE 1 TABLET BY MOUTH EVERY 8 HOURS NEEDED FOR MUSCLE SPASMS FOR UP TO 10 DAYS 30 tablet 024 2024 Discontinued(R eorder (will not trigger notification to Pharmacy)) polyvinyl alcohol (Liquifilm Tears) 1.4 % ophthalmic solution Administer 1 drop into both eyes if needed for dry eyes. PLACE 1 DROP IN EACH EYE TWICE DAILY NEEDED 15 mL 3 2024 Discontinued(R eorder (will not trigger notification to Pharmacy)) cetirizine (ZyrTEC) 10 MG tabletIndications :Seasonal allergic rhinitis due to pollen Take 1 tablet (10 mg) by mouth Once per day. 30 tablet 2 2024 Discontinued(R eorder (will not trigger notification to Pharmacy)) acetaminophen (Tylenol) 325 MG tablet TAKE 2 TABLETS BY MOUTH EVERY 6 HOURS NEEDED FOR MODERATE PAIN OR FOR MIGRAINE 90 tablet 1 2024 Discontinued(R eorder (will not trigger notification to Pharmacy)) amitriptyline (Elavil) 10 MG tablet Take 1 tablet (10 mg) by mouth at bedtime. 30 tablet 1 025 2024 Discontinued valACYclovir (Valtrex) 500 MG tabletIndications :HSV-1 infection TAKE 1 TABLET BY MOUTH EVERY DAY 30 tablet 1 025 2024 Discontinued montelukast (Singulair) 10 MG tabletIndications :Moderate persistent asthma without complication TAKE 1 TABLET BY MOUTH DAILY AT BEDTIME 30 tablet 3 025 2024 Discontinued(R eorder (will not trigger notification to Pharmacy)) cyclobenzaprine (Flexeril) 10 MG tabletIndications :Chronic bilateral thoracic back pain TAKE 1 TABLET BY MOUTH DAILY AT BEDTIME NEEDED FOR MUSCLE SPASMS 20 tablet 1 025 2024 Discontinued(R eorder (will not trigger notification to Pharmacy)) fluticasone (Flonase) 50 MCG/ACT nasal sprayIndications: Seasonal allergic rhinitis due to pollen INSTILL 1 SPRAY IN EACH NOSTRIL TWICE DAILY FOR 7 DAYS. 16 g 025 2024 Discontinued amitriptyline (Elavil) 10 MG tablet TAKE 1 TABLET BY MOUTH AT BEDTIME 30 tablet 1 025 2024 Discontinued Active Problems Problem Noted Date Diagnosed Date Dysuria 08/05/2025 Assessment & Plan (08/05/2025 6:50 PM EDT): Orders: POCT Urinalysis Culture, Urine, Routine Type 2 diabetes mellitus wit hout complication, without long-term current use of insulin 08/05/2025 Assessment & Plan (08/05/2025 6:50 PM EDT): Orders: POCT Glucose Elevated blood pressure reading 08/05/2025 Assessment & Plan (08/05/2025 6:50 PM EDT): Candidiasis of genitalia 08/05/2025 Assessment & Plan (08/05/2025 6:50 PM EDT): At risk for nausea and vomiting 08/05/2025 Assessment & Plan (08/05/2025 6:50 PM EDT): Aching headache 08/05/2025 Assessment & Plan (08/05/2025 6:50 PM EDT): Orders: ondansetron (Zofran) 4 MG tablet; Take 2 tablets (8 mg) by mouth every 8 (eight) hours if needed for nausea or vomiting for up to 7 days. Hyperglycemia 06/03/2025 Assessment & Plan (06/03/2025 10:47 AM EDT): Stable, lifestyle reviewed Lab Results Component Value Date HGBA1C 6.1 (A) 06/03/2025 Colon cancer screening 06/03/2025 Assessment & Plan (06/03/2025 10:47 AM EDT): Referral to gi for colonoscopy Acute bilateral low back pain with sciatica 11/2024 Assessment & Plan (06/03/2025 10:48 AM EDT): Referral to physiatry due to chronic symptoms Routine screening for STI (sexually transmitted infection) 06/03/2025 Chronic daily headache 06/03/2025 Assessment & Plan (06/03/2025 10:48 AM EDT): Trial low dose amitryptiline, Follow up in 2 months sooner prn Dietary counseling 06/03/2025 Assessment & Plan (06/03/2025 10:50 AM EDT): Dietary Recommendations: Fruits, vegetables, whole grains, protein foods, and fat-free or low-fat dairy products are healthy choices. Eat different types of protein foods in your diet. This can include seafood, lean meats, poultry, beans, peas, lentils, nuts, seeds, soy products, and eggs. Limit foods and beverages higher in added sugars, saturated fat, and sodium. Exercise Recommendations: At least 150 minutes of moderate-intensity physical activity per week, or an equivalent combination of moderate- and vigorous-intensity activity Exercise counseling 06/03/2025 Subacute pansinusitis 04/25/2025 Assessment & Plan (04/25/2025 4:21 PM EDT): Rx Augmentin x 7 days Rest (sleep at least 8 hours a night). Hydrate with plenty of water (avoid caffeine and alcohol). Use saline nose drops to loosen mucus + Flonase x 7 days + Zyrtec take Acetaminophen (Tylenol )/Ibuprofen as needed to reduce fever, headache, body aches or discomfort Gargle with salt water and use throat sprays/lozenges for throat pain. Use heated, humidified air. If you do not have a humidifier, take hot showers. Cover coughs and sneezes using the crook of your elbow. If you have a fever, stay home and away from others (self isolation) until fever-free for 72 hours (temperature should be less than 100 F without medication). Encounter for immunization 09/28/2024 Assessment & Plan (08/05/2025 6:50 PM EDT): Orders: FLU VACCINE TRIVALENT [id number] (Fluarix) 19 yrs + Cervicogenic headache 07/09/2024 Assessment & Plan (09/28/2024 8:35 PM EST): Suspect msk strain Referral to physical therapy Reviewed exercises that help with neck strain Prn tizanidine not to be combined with cyclobenzaprine Assessment & Plan (07/11/2024 6:51 PM EDT): Refill flexeril, report worsening symptoms or failure to resolve Pre-diabetes 05/25/2024 Assessment & Plan (05/25/2024 11:08 AM EDT): Stable, continue current heart healthy lifestyle goals, monitor Seasonal allergic rhinitis due to pollen 024 Assessment & Plan (06/03/2025 10:46 AM EDT): Endorses dry nose, may apply vaseline or taper to every other day Allergies play a role in seasonal asthma Referral to allergy Assessment & Plan (05/25/2024 11:08 AM EDT): Renew topical nasal spray 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 Assessment & Plan (06/03/2025 10:47 AM EDT): Stable, on antivirals Assessment & Plan (05/25/2024 11:08 AM EDT): Prefers daily suppressive therapy, trial 500 mg daily (reduced from 1 gm) Cataract 05/25/2024 Assessment & Plan (07/11/2024 6:52 PM EDT): Plan for bilateral repair, pt verbalizes understanding of risks related to procedure and wishes to proceed Assessment & Plan (05/25/2024 11:09 AM EDT): Has upcoming cataract surgery scheduled Asthma 02/06/2024 Overview (02/06/2024): Negative Methacholine Challenge Aug 2019 Assessment & Plan (06/03/2025 10:49 AM EDT): Pt reports daily wheeze, requiring inhaler 3-4 times per day despite compliance with preventative inhalers, and singulair, referral to allergy as symptoms flare with pollen count Assessment & Plan (07/11/2024 6:51 PM EDT): Stable mild intermittent Assessment & Plan (02/07/2024 8:50 PM EDT): Stable, continue symbicort Chronic low back pain 02/06/2024 Assessment & Plan (08/05/2025 6:50 PM EDT): Orders: acetaminophen-codeine (Tylenol w/ Codeine #3) 300-30 MG tablet; Take 1 tablet by mouth every 12 (twelve) hours if needed for severe pain for up to 4 days. 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 Hypertension 02/06/2024 Assessment & Plan (06/03/2025 10:46 AM EDT): At goal today, continue current regimen of tenaolol despite asthma Assessment & Plan (07/11/2024 6:51 PM EDT): Well controlled Assessment & Plan (02/07/2024 8:50 PM EDT): At goal of <140/<90 Continue atenolol 50 mg (for migraines as well) Migraine 02/06/2024 Prediabetes 02/06/2024 PTSD (post-traumatic stress disorder) 02/06/2024 Vision changes 02/06/2024 Assessment & Plan (02/07/2024 8:53 PM EDT): Endorses painless cloudy vision, referral to eye care Gastroesophageal reflux disease without esophagi tis 02/06/2024 Assessment & Plan (02/07/2024 8:51 PM EDT): Recent viral illness, resolved, continue omeprazole, Chronic bilateral thoracic back pain 02/06/2024 Assessment & Plan (02/07/2024 8:53 PM EDT): Prn cyclobenzaprine renewed, Resolved Problems Problem Noted Date Diagnosed Date Resolved Date Type 2 diabetes mellitus wit hout complication, without long-term current use of insulin 09/28/2024 06/02/2025 Assessment & Plan (09/28/2024 8:36 PM EST): Lab Results Component Value Date HGBA1C 6.2 (A) 05/17/2024 Continue Encounters Date Type Department Care Team Description 08/05/2025 10:15 AM EDT Office Visit [facility] [address] [place] [phone] Noemi Pozo NP Elevated blood pressure reading (Primary Dx); Type 2 diabetes mellitus without complication, without long-term current use of insulin (HCC); Dysuria; Encounter for immunization; Candidiasis of genitalia; At risk for nausea and vomiting; Aching headache; Chronic low back pain, unspecified back pain laterality, unspecified whether sciatica present 08/05/2025 Travel 08/04/[address] [facility] [address] [place] [address] Noemi Pozo NP 08/04/2025 Refill [facility] [address] [place] [phone] Noemi Pozo NP Type 2 diabetes mellitus without complication, without long-term current use of insulin (HCC); Moderate persistent asthma without complication; Chronic bilateral thoracic back pain; Seasonal allergic rhinitis due to pollen; HSV-1 infection 08/04/2025 Refill [facility] [address] [place] [phone] Lamar Dutton MD 08/04/2025 Travel 08/04/2025 Telephone [facility] [address] [place] [phone] Noemi Pozo NP CHARTPREP 08/03/2025 Refill [facility] [address] [place] [phone] Lamar Dutton MD Seasonal allergic rhinitis due to pollen 08/03/2025 Refill [facility] [address] [place] [phone] Noemi Pozo NP HSV-1 infection; Seasonal allergic rhinitis due to pollen 07/27/2025 Refill [facility] [address] [place] [phone] Noemi Pozo NP Seasonal allergic rhinitis due to pollen 06/27/2025 Refill [facility] [address] [place] [phone] Lamar Dutton MD Seasonal allergic rhinitis due to pollen 06/16/2025 Refill [facility] [address] [place] [phone] Noemi Pozo NP Chronic bilateral thoracic back pain 06/08/2025 Refill [facility] [address] [place] [phone] Noemi Pozo NP HSV-1 infection; Moderate persistent asthma without complication 06/06/2025 Results Follow-Up [facility] [address] [place] [phone] Noemi Pozo NP POCT Glucose, POCT HGB A1C, Comprehensive Metabolic Panel, Additional followed-up results: 5 06/03/2025 9:00 AM EDT Office Visit [address] [phone] Noemi Pozo NP Prediabetes (Primary Dx); Dietary counseling; Exercise counseling; Hypertension, unspecified type; Seasonal allergic rhinitis due to pollen; HSV-1 infection; Major depressive disorder in partial remission, unspecified whether recurrent (CMS/HCC); PTSD (post-traumatic stress disorder); Mild intermittent asthma without complication; Colon cancer screening; Acute bilateral low back pain with sciatica, sciatica laterality unspecified; Routine screening for STI (sexually transmitted infection); Chronic daily headache 06/03/2025 Orders Only [facility] [address] [place] [phone] Noemi Pozo NP 06/03/2025 Travel 06/02/[address] [phone] Noemi Pozo NP Chart Prep 05/27/2025 Patient Outreach [facility] [address] [place], [place] [phone] Noemi Pozo NP Pre-visit Planning ([facility] unable to reach [facility] ) 05/24/2025 Refill [facility] [address] [place] [phone] Lamar Dutton MD from Last 3 Months Immunizations Immunization Administration Dates Next Due HPV 9-Valent 02/23/2022 HPV, Quadrivalent 02/23/2022 Hep A / Hep B 12/12/2021 Hep A, Adult 02/06/2024 Influenza Injectable Quadriv alant Preservative Free IIV4 MDCK 08/07/2020,07/15/2019 Influenza Whole 08/07/2020 Influenza injectable quadriv alent IIV4 with preservative 08/14/2018 Influenza injectable quadriv alent preservative free 08/07/2023,08/05/2017 Influenza, IIV3, injectable 08/07/2023,1 ,08/21/2021,2018,08/14/2018,08/05/2017,07/29/2016,1 11/04/2014,09/20/2014,08/13/2013 Influenza, Unspecified 09/07/2012,2010,07/27/2010,2007,09/28/2007,10/03/2006 Influenza, live, intranasal 08/21/2009 Influenza, seasonal, injecta ble, preservative free 08/05/2025,09/28/2024 Moderna Covid-19 Vaccine 12+ 02/01/2021,01/31/20 21 Pneumococcal Conjugate PCV 20 02/23/2022 Td (adult), unspecified 10/03/2006 Tdap 12/09/2021,05/18/2021,08/13/2013 Varicella 12/12/2021 Family History Medical History Relation Name Comments Stroke Father Prostate cancer Father's Brother Diabetes Mother Relation Name Status Comments Father Father's Brother Mother Social History Tobacco Use Types Packs/Day Years [...] not to disclose 2022 4:11 PM EDT Last Filed Vital Signs Vital Sign Reading Time Taken Comments Blood Pressure 148/100 08/05/2025 10:27 AM EDT Pulse 90 08/05/2025 10:27 AM EDT Temperature 36.7 C (98.1 F) 08/05/2025 10:27 AM EDT Respiratory Rate 20 08/05/2025 10:27 AM EDT Oxygen Saturation 96% 06/03/2025 9:15 AM EDT Inhaled Oxygen Concentration - - Weight 83.1 kg (183 lb 3.2 oz) 08/05/2025 10:27 AM EDT Height 170.2 cm (5' 7 ) 08/05/2025 10:27 AM EDT Body Mass Index 28.69 08/05/2025 10:27 AM EDT Plan of Treatment Upcoming Encounters Date Type Department Care Team (Late st Contact Info) Description 08/16/2025 1:00 PM EDT Office Visit [facility] [address] [place] [address] Evangelist, Sona, OD [address] [place] [address] Health Maintenance Due Date Last Done Comments CT Colonography 1976 Colonoscopy 1976 Colorectal Cancer Screening 1976 FIT DNA/Cologuard 1976 FIT 1976 FOBT 1976 Sigmoidoscopy 1976 Diabetes: Foot Exam 1986 Alcohol/Substance Use Screening 1988 Family Planning (PISQ) 1991 Diabetes: Urine Protein Screening 1995 Hepatitis B Vaccines (2 of 3 - Hep B Twinrix 3-dose series) 01/09/2022 12/12/2021 HPV Vaccines (2 - Male 3-dose series) 03/23/2022 02/23/2022, 02/23/2022 COVID-19 Vaccine ( season) 2025 08/07/2023, 01/18/2023, 10/04/2021, Additional history exists Diabetes: Hemoglobin A1C 12/04/2025 025, 05/17/2024, 03/26/2024 Eye Exam 05/14/2026 05/14/2024, 05/03, 05/14/2024, Additional history exists Depression Screening 06/03/2026 06/03/2025, 06/03/20 25 Lipid Panel 06/03/2026 06/03/2025, 03/26/2024 SDOH Screening 06/03/2026 06/03/2025 Disability Screening 08/04/2026 08/04/2025 Tobacco Screening 08/05/2026 08/05/2025 Zoster Vaccines (1 of 2) 2026 DTaP/Tdap/Td Vaccines (4 - Td or Tdap) 12/09/2031 12/09/2021, 05/18/2021, 08/13/2013, Additional history exists RSV Patients and Patients Aged 60 years or older (1 - 1-dose 75+ series) 2051 Pneumococcal Vaccine: Pediatrics (0 to 5 Years) and At-Risk Patients (6 to 49) Years Completed 02/23/2022 Hepatitis A Vaccines Aged Out 02/06/2024, 12/12/19 22 No longer eligible based on patient's age to complete this topic HIV Screening Completed 06/03/2025, 03/26/2024 Hepatitis C Screening Completed 06/03/2025 Influenza Vaccine Completed 08/05/2025, , 08/07/2023, Additional history exists HIB Vaccines Aged Out No longer eligi ble based on patient's age to complete this topic IPV Vaccines Aged Out No longer eligi ble based on patient's age to complete this topic Meningococcal B Vaccine Aged Out No l onger eligible based on patient's age to complete this topic Meningococcal Vaccine Aged Out No denise latia eligible based on patient's age to complete this topic RSV under 20 months Aged Out No longe r eligible based on patient's age to complete this topic Rotavirus Vaccines Aged Out No longer eligible based on patient's age to complete this topic Procedures Procedure Name Priority Date/Time Associated Diagnosis Comments POCT URINALYSIS DIPSTICK Routine 08/05/2025 10:31 AM EDT Dysuria POCT GLUCOSE Routine 08/05/2025 10:29 AM EDT Type 2 diabetes mellitus without complication, without long-term current use of insulin (HCC) HEPATITIS C AB W/REFL TO HCV RNA, QN, PCR Routine 06/03/2025 10:28 AM EDT Chronic daily headache HIV 1/2 ANTIGEN/ANTIBODY, FOURTH GENERATION W/RFL Routine 06/03/2025 10:28 AM EDT Chronic daily headache RPR (MONITOR) W/REFL TITER Routine 06/03/2025 10:00 AM EDT Chronic daily headache CHLAMYDIA/TRICHOMONAS/ NEISSERIA GONORRHOEAE, PCR, URINE Routine 06/03/2025 10:00 AM EDT Chronic daily headache CBC WITH AUTO DIFFERENTIAL Routine 06/03/2025 10:00 AM EDT Prediabetes LIPID PANEL, STANDARD Routine 06/03/2025 10:00 AM EDT Prediabetes COMPREHENSIVE METABOLIC PANEL Routine 06/03/2025 10:00 AM EDT Prediabetes CHLAMYDIA/TRICHOMONAS/ NEISSERIA GONORRHOEAE, PCR, URINE Routine 06/03/2025 9:43 AM EDT POCT GLYCATED HEMOGLOBIN, TOTAL Routine 06/03/2025 9:25 AM EDT Prediabetes POCT GLUCOSE Routine 06/03/2025 9:25 AM EDT Prediabetes from Last 3 Months Results * POCT Urinalysis (08/05/2025 10:31 AM [...] (ABNORMAL) POCT Glucose (08/05/2025 10:29 AM EDT) Only the most recent of2 resultswithin the time period is included. Pathologist [facility] Glucose Blood, POC 217(A) 60 - 200 mg/dL QC Media Lot # [id number] Lot# Expiration Date 3120 Blood Capillary blood specimen / Unknown 08/05/2025 10:29 AM EDT Noemi Pozo [employer]JECT MANAGER POINT OF CARE TEST ENTER/EDIT OR DERABLES Final Result * Hepatitis C Antibody with Reflex to HCV, RNA, Quantitative, Real-Time PCR (06/03/2025 10:28 AM EDT) Pathologist [facility] Hepatitis C Antibody Nonreactive Nonreactive [facility] Comment:Antibodies to HCV no t detected; does not exclude early acuteHCV infection. Blood Venous blood specimen / Unknown 06/03/2025 10:28 AM EDT 06/03/2025 12:14 PM EDT Noemi Pozo NP LAB BLOOD ORDERABLES Final Resul t Performing Organization Address City/[facility]/ZIP Co de Phone Number [facility] [address] [place] [phone] * HIV-1/2 Antigen and Antibodies, Fourth Generation, with Reflexes (06/03/2025 10:28 AM EDT) Pathologist [facility] HIV AB/AG Nonreactive Nonreactive [facility] Comment:HIV-1 p24 Ag and/or HIV-1/HIV-2 Ab not detected.A test result that is nonreactive does not exclude thepossibility of exposure to or infection with HIV-1 and/orHIV-2. Nonreactive results in this assay for individualswith prior exposure to HIV-1 and/or HIV-2 may be due toantigen and antibody levels that are below the limit ofdetection of this assay.The [employer] HIV Ag/Ab Combo assay result andsupplemental assay results should be interpreted inconjunction with the patient's clinical presentation,history and other laboratory results. If the results areinconsistent with clinical evidence, additional testing issuggested to confirm the result. Blood Venous blood specimen / Unknown 06/03/2025 10:28 AM EDT 06/03/2025 12:14 PM EDT us Noemi Pozo NP LAB BLOOD ORDERABLES Final Resul t Performing Organization Address City/[facility]/ZIP Co de Phone Number [facility] [address] [place] [phone] * Chlamydia/N. Gonorrhoeae, PCR, Urine (06/03/2025 10:00 AM EDT) Only the most recent of2 resultswithin the time period is included. Pathologist [facility] CT PCR, Urine NOT DETECTED Not Detect. [facility] Comment:A not detected test result does not exclude the possibilityof infection because test results can be affected byimproper specimen collection, concurrent antibiotic therapy,or the number of organisms in the specimen which may bebelow the sensitivity of the test. As with many diagnostictests, results from the Xpert CT/NG assay should beinterpreted in conjunction with other laboratory andclinical data available to the clinician.The Xpert CT/NG assay should not be used for the evaluationof suspected sexual abuse or for other medico-legalindications. Additional testing is recommended in anycircumstance when false positive or false negative resultscould lead to adverse medical, social or psychologicalconsequences. NG PCR, Urine NOT DETECTED Not Detect. [facility] Comment:A not detected test result does not exclude the possibilityof infection because test results can be affected byimproper specimen collection, concurrent antibiotic therapy,or the number of organisms in the specimen which may bebelow the sensitivity of the test. As with many diagnostictests, results from the Xpert CT/NG assay should beinterpreted in conjunction with other laboratory andclinical data available to the clinician.The Xpert CT/NG assay should not be used for the evaluationof suspected sexual abuse or for other medico-legalindications. Additional testing is recommended in anycircumstance when false positive or false negative resultscould lead to adverse medical, social or psychologicalconsequences. Urine (Urine, Random) 06/03/2025 10:00 AM EDT 06/03/2025 12:02 PM EDT us Noemi Pozo NP LAB URINE ORDERABLES Final Resul t [facility] [address] [place] [address] [phone] * CBC auto differential (06/03/2025 10:00 AM EDT) White Blood Count 6.0 4.8 - 10.8 X10*3/uL [facility] Red Blood Count 5.01 4.60 - 5.80 X10*6/uL [facility] Hemoglobin 15.2 14.0 - 18.0 g/dl [facility] Hematocrit 44.0 42.0 - 52.0 % [facility] Mean Corpuscular Volume 87.8 80.0 - 98.0 fL [facility] Mean Corpuscular Hemoglobin 30.3 27.0 - 33.0 pg [facility] Mean Corpuscular HGB Conc 34.5 31.0 - 36.0 g/dl [facility] Red Cell Distribution Width 12.7 11.0 - 16.0 % [facility] Platelet Count 245 160 - 400 X10*3/uL [facility] Mean Platelet Volume 10.9 9.4 - 12.4 fL [facility] Neutrophils Percent Auto 50.4 45 - 73 % [facility] Imm Gran Pct Auto 0.2 0.0 - 0.4 % [facility] Lymphocytes Percent Auto 36.0 20 - 40 % [facility] Monocytes Percent Auto 9.5 2 - 11 % [facility] Eosinophils Percent Auto 2.7 0 - 4 % [facility] Basophils Percent Auto 1.2 0 - 2 % [facility] NRBC Pct Auto 0.0 0.0 - 0.2 /100WBC [facility] Neutrophils Absolute Auto 3.0 2.0 - 8.3 x10*3/uL [facility] Imm Gran Abs Auto 0.01 0.00 - 0.03 X10*3/uL [facility] Lymphocytes Absolute Auto 2.2 1.2 - 4.9 X10*3/uL [facility] Monocytes Absolute Auto 0.6 0.1 - 1.2 X10*3/uL [facility] Eosinophils Absolute Auto 0.2 0.0 - 0.4 X10*3/uL [facility] Basophils Absolute Auto 0.1 0.0 - 0.2 X10*3/uL [facility] NRBC Abs Auto 0.000 0.0 - 0.012 X10*3/uL [facility] Blood Venous blood specimen / Unknown 06/03/2025 10:00 AM EDT 06/03/2025 12:14 PM EDT us Noemi Pozo NP LAB BLOOD ORDERABLES Final Resul t [facility] [address] [place] [address] [phone] * RPR (Monitor) with Reflex to??Titer (06/03/2025 10:00 AM EDT) RPR (Monitor) w/Refl Titer NON-REACTI VE NON-REACT JESSY [facility] Comment:THIS TEST WAS PERFOR MED AT:[employer] [place] [id number] COLMENARES MD Rapid Plasma Reagin Ab Titer TNP [facility] Blood Venous blood specimen / Unknown 06/03/2025 10:00 AM EDT 06/03/2025 12:02 PM EDT us Noemi Pozo SUPPLY CHAIN PROJECT MANAGER LAB BLOOD ORDERABLES Final Resul t [facility] [address] [place] [address] [phone] * (ABNORMAL) Lipid Panel, Standard (06/03/2025 10:00 AM EDT) Triglycerides 126 <150 mg/dL [facility] Comment:Desirable Triglyceri de: less than 150 mg/dLBorderline High Triglyceride 150-199 mg/dLHigh Triglyceride: 200-499 mg/dLVery High Triglyceride: greater than or equal to 5OO mg/dL Cholesterol 173 <200 mg/dL [facility] Comment:Desirable Cholestero l: less than 200 mg/dLBorderline High Cholesterol: 200-239 mg/dLHigh Cholesterol: greater than 239 mg/dL LDL Cholesterol Calculated 113(H) <100 mg/dL [facility] Comment:Desirable LDL: less than 100 mg/dLNear Optimal/Above Optimal LDL: 110- 129 mg/dLBorderline High LDL: 130-159 mg/dLHigh LDL: 160-189 mg/dLVery High LDL: greater than or equal to 190 mg/dL HDL Cholesterol 35(L) >40 mg/dL [facility] Comment:Desirable HDL: great er than 40 mg/dL Note: This HDL assay may give artificially low results in patients with liver disease. Blood Venous blood specimen / Unknown 06/03/2025 10:00 AM EDT 06/03/2025 12:17 PM EDT us Noemi Pozo SUPPLY CHAIN PROJECT MANAGER LAB BLOOD ORDERABLES Final Resul t [facility] [address] [place] [address] [phone] * (ABNORMAL) Comprehensive Metabolic Panel (06/03/2025 10:00 AM EDT) Sodium 140 135 - 145 mmol/L [facility] Potassium 3.6 3.3 - 5.1 mmol/L [facility] Chloride 105 96 - 108 mmol/L [facility] Carbon Dioxide 29 22 - 29 mmol/L [facility] Anion Gap 10(L) 12 - 20 [facility] Urea Nitrogen (BUN) 11 9 - 16 mg/dL [facility] Creatinine, Serum 0.85 0.5 - 1.4 mg/dL [facility] Estimated Glomerular Filt Rate >60 [facility] Comment:Chronic Kidney Disea se: Estimated GFR < 60 mL/min/[id number] Kidney Disease: Estimated GFR < 15 mL/min/1.73m2 Glucose 93 60 - 115 mg/dL [facility] Calcium 8.9 8.4 - 10.2 mg/dL [facility] Bilirubin, Total 0.5 0.0 - 1.0 mg/dL [facility] Aspartate Amino Transferase 26 5 - 37 U/L [facility] Alanine Aminotransferase 23 0 - 40 U/L [facility] Total Protein 6.9 6.5 - 8.0 g/dL [facility] Albumin Level 4.5 3.5 - 5.0 g/dL [facility] Alkaline Phosphatase 77 39 - 117 U/L [facility] Blood Venous blood specimen / Unknown 06/03/2025 10:00 AM EDT 06/03/2025 12:17 PM EDT us Noemi Pozo SUPPLY CHAIN PROJECT MANAGER LAB BLOOD ORDERABLES Final Resul t [facility] [address] [place] [address] [phone] * (ABNORMAL) POCT HGB A1C (06/03/2025 9:25 AM EDT) Hemoglobin A1C 6.1(A) 4.0 - 5.7 % QC Media Lot # [id number] Lot# Expiration Date Blood 06/03/2025 9:25 AM EDT us Noemi Pozo SUPPLY CHAIN PROJECT MANAGER POINT OF CARE TEST ENTER/EDIT OR DERABLES Final Result from Last 3 Months Insurance [facility]ARE < [address] [place] [id number] Care Teams Certification And Selection Specialist Relationship Specialty Start Date End Date Noemi Pozo NP [address] [place] [phone] PCP - General Family Medicine 02/06/24
--- OUTSIDE RECORDS SUMMARY | 2025-08-05 19:08 | XMS_ITS | Clinical Summary ---
Author Organization [facility] ity Address [address] [place] [phone] Care Team Providers Care Vp Scientific Affairs Name Role Phone Unavailable Primary Care Provider [...] of 3 - 19+ 3-dose series) 1995 Depression Screening 11/03/2024 COVID-19 Vaccine (1 - 2023-2 5 season) 2025 Influenza Vaccine (#1) 2025 RSV Immunization Adult Patie nts (1 - 1-dose 75+ series) 2051 HIB Vaccines Aged Out No longer eligi [...]
--- OUTSIDE RECORDS SUMMARY | 2025-08-05 19:08 | XMS_ITS | Clinical Summary ---
Author Organization [facility] Address [address] [address] Phone Care Team Providers Care Buff Wheel Fabricator Name Role Phone Joel Barrett Primary Care Provider [phone] Allergies No known active allergies Social History [...] MEDICARE PART A & B [place] [address] [place] [address] MEDICARE PART A & B [facility] Care Teams Buff Wheel Fabricator Relationship Specialty Start Date End Date Joel Barrett PA [address] [facility] [address] [place] [address] PCP - General 05/03/14 Additional Source Comments The information contained in this document represents components of the legal health record. It is not the complete legal health record.[facility]
--- OUTSIDE RECORDS SUMMARY | 2025-08-05 19:08 | XMS_ITS | Encounter Summary ---
Author Organization [employer] Address [address] [facility] [address], [place] [address] Care Team Providers Care Assistant Business Manager Name Role Phone Noemi Pozo NP Primary Care Provider [phone] Reason for Visit * Reason Comments Med Refill Encounter Details Date Type Department Care Team ([facility] st Contact Info) Description 11/08/2024 Refill [facility] [address] [place], [place] [phone] Noemi Pozo NP [address] [place], [place] [phone] Social History Tobacco Use Types Packs/Day Years [...] Description 08/16/2025 1:00 PM EDT Office Visit [facility] OPTOMET[facility] [address] [place] [address] Evangelist, Sona, OD [address] [place] [address] documented as of this encounter Visit Diagnoses Not on filedocumented in this encounter Additional Health Concerns Assessment Noted Time PHQ-9 Depression Total Score: 0 05/17/20 3:47 PM EDT documented as of this encounter Care Teams Assistant Business Manager Relationship Specialty Start Date End Date Noemi Pozo NP [address] [place] [address] PCP - General Family Medicine 02/06/24 documented as of this encounter
--- OUTSIDE RECORDS SUMMARY | 2025-08-05 19:08 | XMS_ITS | Encounter Summary ---
Author Organization [employer] Address 75 [facility] [address] [place] [address] Care Team Providers Care Horse And Wagon Driver Name Role Phone Noemi Pozo CAMILA Primary Care Provider [phone] Reason for Visit * Reason Comments Med Refill Encounter Details Date Type Department Care Team ([facility] st Contact Info) Description 05/24/2025 Refill [facility] [address] [place] [address] [phone] Lamar Dutton MD [address] [place], [place] [phone] Social History Tobacco Use Types Packs/Day Years [...] Description 08/16/2025 1:00 PM EDT Office Visit [facility] [address] [place], [place] [phone] Evangelist, Sona, OD [address] [place] [address] documented as of this encounter Visit Diagnoses Not on filedocumented in this encounter Additional Health Concerns Assessment Noted Time PHQ-9 Depression Total Score: 0 05/17/20 3:47 PM EDT documented as of this encounter Care Teams Horse And Wagon Driver Relationship Specialty Start Date End Date Noemi Pozo NP [address] [place] [address] PCP - General Family Medicine 02/06/24 documented as of this encounter
--- OUTSIDE RECORDS SUMMARY | 2025-08-05 19:08 | XMS_ITS | Encounter Summary ---
Author Organization [employer] Address [address] [facility] [address] [place] [address] Care Team Providers Care Website Programmer Name Role Phone Noemi Pozo CAMILA Primary Care Provider [phone] Reason for Visit * Reason Comments Med Refill Encounter Details Date Type Department Care Team ([facility] st Contact Info) Description 08/03/2025 Refill [facility] [address] [place] [address] [phone] Lamar Dutton MD [address] [place] [address] Seasonal allergic rhinitis due to pollen Social [...] Description 08/16/2025 1:00 PM EDT Office Visit [facility] OPT[facility] [address] [place] [address] Sona Blanca, OD [address] [place] [address] documented as of this encounter Visit Diagnoses Diagnosis Seasonal allergic rhinitis due to pollen documented in this encounter Additional Health Concerns Assessment Noted Time PHQ-9 Depression Total Score: 7 06/03/20 25 9:56 AM EDT documented as of this encounter Care Teams Website Programmer Relationship Specialty Start Date End Date Noemi Pozo NP [address] [place] [address] PCP - General Family Medicine 02/06/24 documented as of this encounter
--- OUTSIDE RECORDS SUMMARY | 2025-08-05 19:08 | XMS_ITS | Encounter Summary ---
Author Organization [employer] Address 75 [facility] [address] [place] [address] Care Team Providers Care Library Technician Name Role Phone Noemi Pozo NP Primary Care Provider [phone] Reason for Visit * Reason Onset Date Comments Med Refill 08/04/2025 Encounter Details Date Type Department Care Team (Late st Contact Info) Description 08/04/2025 Refill [facility] [address] [place], [place] [phone] Noemi Pozo NP [address] [place] [address] Social History Tobacco Use Types Packs/Day Years [...] Description 08/16/2025 1:00 PM EDT Office Visit [facility] OPT[facility] [address] [place] [address] Sona Blanca, OD [address] [place] [address] documented as of this encounter Visit Diagnoses Not on filedocumented in this encounter Additional Health Concerns Assessment Noted Time PHQ-9 Depression Total Score: 7 06/03/20 25 9:56 AM EDT documented as of this encounter Care Teams Library Technician Relationship Specialty Start Date End Date Noemi Pozo NP [address] [place] [address] PCP - General Family Medicine 02/06/24 documented as of this encounter
--- OUTSIDE RECORDS SUMMARY | 2025-08-05 19:08 | XMS_ITS | Encounter Summary ---
Author Organization [email or web address] Address [address] [place] [phone] Care Team Providers Care Rotor Assembler Name Role Phone Noemi Pozo CAMILA Primary Care Provider [phone] Reason for Visit * Reason Onset Date Comments New Patient 06/19/2023 Encounter Details Date Type Department Care Team (Late st Contact Info) Description 06/19/2023 Telephone [facility] [address] [place] [address] Ronak Alicea MD [address] [place] [address] New Patient Social History Tobacco Use Types Packs/Day Years Used Date Smoking Tobacco: Never Assessed Sex and Gender Information Value Date Recorded Sex Assigned at Male 06/19/2023 4:11 PM EDT Legal Sex Male 4:10 PM EDT Gender Identity Male 06/19/2023 4:11 PM EDT Sexual Orientation Choose not to disclose 2022 4:11 PM EDT documented as of this encounter Miscellaneous Notes * Telephone Encounter - Felipa Valentin - 06/19/2023 4:12 PM EDT Pt has been transfer over to wait list for [facility] SAW OPERATOR. EFFECTIVE SINCE 06/19/2023 documented in this encounter Plan of Treatment Upcoming Encounters Date Type Department Care Team (Late st Contact Info) Description 08/16/2025 1:00 PM EDT Office Visit [facility] OPTOMETRY [address] [place] [address] Sona Blanca OD [address] [place] [address] documented as of this encounter Visit Diagnoses Not on filedocumented in this encounter Care Teams Rotor Assembler Relationship Specialty Start Date End Date Noemi Pozo NP [address] [place] [address] PCP - General Family Medicine 02/06/24 documented as of this encounter
== END 2025-08-05 19:06 | disposition home or self-care (01) ==
LOC: HO.LNP 19:05
PROVIDERS: Visit Provider Nurse Practitioner Family
DX: R30.0 Dysuria (principal)
CPT/HCPCS: 87086